=== PATIENT | female | born 1995 | race Caucasian/White ===

== ENCOUNTER 2018-04-04 11:55 | Inpatient (IN) ==
[2018-04-04 13:16] LABS: Apearance,Urine CLEAR (Clear); Bilirubin,Urine Negative (Negative); Blood, Urine Negative (Negative); Glucose,Urine (UA) Negative (Negative); Ketones,Urine Negative (Negative); Mucus,Urine Occasional /LPF (Occasional); Nitrite,Urine Negative (Negative); Protein,Urine Negative; RBC,Urine 1 /HPF (0-4); Squamous Epithelial Cell,Urine Occasional /HPF (0-10); Urine Color Yellow (Yellow); Urine Specific Gravity 1.013 (1.001-1.035); Urine Urobilinogen < 2.0 EU/DL (0.2-1.0)
[2018-04-04 13:24] LABS: Basophils % 0.2 % (0.0-0.8); Eosinophils % 0.1 % (0.00-10.9); Hematocrit 44.2 VOL% (35.7-47.0); Hemoglobin 14.3 GM/DL (12.0-16.0); Immature Granulocytes % 0.4 %; Immature Granulocytes Absolute 0.08 #; Lymphocytes # 1.1 10*3/uL (1.4-4.0); Lymphocytes % 5.9 % (21.3-54.2); Mean Corpuscular HGB Conc 32.4 GM/DL (32-36); Mean Corpuscular Hemoglobin 28 PG (27-34); Mean Corpuscular Volume 86.8 FL (87-102); Mean Platelet Volume 10.7 FL (9.6-12.0); Monocytes # 0.9 10*3/uL (0.11-0.8); Neutrophils # 15.8 10*3/uL (1.4-7.4); Neutrophils % 88.4 % (38.7-73.9); Platelet Count 196 T/CUMM (130-400); Red Blood Count 5.09 MC/CUMM (3.8-5.5); Red Cell Distribution Width 12.3 % (9.3-17.3); White Blood Count 17.8 T/CUMM (4-12)
[2018-04-04 13:48] LABS: Alanine Aminotransferase 34 U/L (13-56); Albumin 4.1 G/DL (3.4-5.0); Alkaline Phosphatase 48 U/L (45-117); Aspartate Amino Transferase 14 U/L (0-37); Bilirubin,Total < 0.39 MG/DL (0.2-1.0); Blood Urea Nitrogen 15 MG/DL (7-18); Calcium 9.5 MG/DL (8.5-10.1); Glucose 99 MG/DL (74-106); Osmolality,Calculated 279.4 MOS/KG (273-304); Potassium 3.8 MMOL/L (3.5-5.1); Sodium 140 MMOL/L (136-145)
[2018-04-04] MEDS ORDERED: PIPERACILLIN/TAZOBACTAM 3,375 MG in SODIUM CHLORIDE 0.9% 100 ML IV STA (17:15)
[2018-04-04] MEDS ORDERED: LIDOCAINE 1%/EPI INJ 20 ML VIAL ONE (18:44)
[2018-04-04] MEDS ORDERED: TISSUE ADHESIVE 1 EACH APPLICATOR TOP ONE (18:44)
[2018-04-04] MEDS: LACTATED RINGERS 1,000 ML IV SCH ×2 (19:06→20:01)
[2018-04-04] MEDS ORDERED: ONDANSETRON 4 MG/2 ML VIAL IV PRN ×2 (19:17→20:00)
[2018-04-04] MEDS ORDERED: HYDROmorphone 2 MG/1 ML VIAL IV PRN (19:17)
[2018-04-04] MEDS ORDERED: HYDROmorphone 2 MG/1 ML VIAL ONE (20:04)
[2018-04-04] MEDS: HYDROmorphone 2 MG/1 ML VIAL IV PRN ×4 (20:05→20:20)
[2018-04-04] MEDS ORDERED: ONDANSETRON 4 MG/2 ML VIAL ONE (20:08)
[2018-04-04] MEDS ORDERED: PROPOFOL 200 MG/20 ML VIAL IV ONE (20:11)
[2018-04-04] MEDS ORDERED: MIDAZOLAM 2 MG/2 ML VIAL ONE (20:12)
[2018-04-04] MEDS ORDERED: GLYCOPYRROLATE 0.4 MG/2 ML VIAL ONE (20:12)
[2018-04-04] MEDS ORDERED: ROCURONIUM 100 MG/10 ML VIAL IV ONE (20:12)
[2018-04-04] MEDS ORDERED: fentaNYL 100 MCG/2 ML VIAL ONE (20:12)
[2018-04-04] MEDS ORDERED: SUCCINYLCHOLINE 200 MG/10 ML VIAL ONE (20:12)
[2018-04-04] MEDS ORDERED: NEOSTIGMINE 10 MG/10 ML VIAL ONE (20:12)
[2018-04-04] MEDS ORDERED: ACETAMINOPHEN 1,000 MG/100 ML VIAL IV ONE (20:12)
[2018-04-04] MEDS ORDERED: DEXAMETHASONE 10 MG/1 ML VIAL ONE (20:12)
[2018-04-04] MEDS ORDERED: DESFLURANE 1 UNIT/15 MINUTE INH ONE (20:13)
[2018-04-04] MEDS: DEXTROSE 5% LACTATED RINGERS 1,000 ML IV SCH (22:07)
[2018-04-04] MEDS: cefOXitin 2,000 MG in SYRINGE 1 EACH IV SCH (22:58)
[2018-04-05 04:29] LABS: Basophils % 0.1 % (0.0-0.8); Hematocrit 39.8 VOL% (35.7-47.0); Hemoglobin 12.9 GM/DL (12.0-16.0); Immature Granulocytes % 0.4 %; Immature Granulocytes Absolute 0.06 #; Lymphocytes # 0.4 10*3/uL (1.4-4.0); Mean Corpuscular HGB Conc 32.4 GM/DL (32-36); Mean Corpuscular Hemoglobin 28 PG (27-34); Mean Corpuscular Volume 87.7 FL (87-102); Mean Platelet Volume 11.6 FL (9.6-12.0); Monocytes # 0.1 10*3/uL (0.11-0.8); Monocytes % 0.7 % (1.7-12.7); Neutrophils # 13.1 10*3/uL (1.4-7.4); Neutrophils % 95.8 % (38.7-73.9); Platelet Count 195 T/CUMM (130-400); Red Blood Count 4.54 MC/CUMM (3.8-5.5); Red Cell Distribution Width 12.3 % (9.3-17.3); White Blood Count 13.7 T/CUMM (4-12)
[2018-04-05] MEDS: cefOXitin 2,000 MG in SYRINGE 1 EACH IV SCH ×4 (04:45→22:06)
[2018-04-05] MEDS: DEXTROSE 5% LACTATED RINGERS 1,000 ML IV SCH ×3 (04:45→19:15)
[2018-04-05 05:21] LABS: Lymphocytes 7 % (20-55); Platelet Estimate Adequate; Segmented Neutrophils 93 % (50-85); Total Cells Counted 100
[2018-04-06] MEDS: DEXTROSE 5% LACTATED RINGERS 1,000 ML IV SCH ×2 (03:40→06:35)
[2018-04-06 04:59] LABS: Basophils % 0.2 % (0.0-0.8); Eosinophils % 0.1 % (0.00-10.9); Hematocrit 34.9 VOL% (35.7-47.0); Immature Granulocytes % 0.3 %; Immature Granulocytes Absolute 0.03 #; Lymphocytes # 2.3 10*3/uL (1.4-4.0); Mean Corpuscular HGB Conc 31.5 GM/DL (32-36); Mean Corpuscular Hemoglobin 28 PG (27-34); Mean Corpuscular Volume 88.8 FL (87-102); Mean Platelet Volume 10.9 FL (9.6-12.0); Monocytes # 0.6 10*3/uL (0.11-0.8); Neutrophils % 70.4 % (38.7-73.9); Platelet Count 164 T/CUMM (130-400); Red Blood Count 3.93 MC/CUMM (3.8-5.5); Red Cell Distribution Width 12.5 % (9.3-17.3)
[2018-04-06] MEDS: cefOXitin 2,000 MG in SYRINGE 1 EACH IV SCH (05:38)
[2018-04-06 12:10] VITALS: BP 117/64
== END 2018-04-06 12:05 | disposition home or self-care (01) | DRG 343 ==
LOC: N.ED 11:55 → N.EDINP 18:09 → N.3E 18:30
PROVIDERS: ADMIT Surgery; ATTEND Surgery

== ENCOUNTER 2021-06-16 11:43 | Inpatient (IN) ==
[2021-06-16] MEDS ORDERED: BUTORPHANOL 2 MG/ML VIAL IV PRN (12:14)
[2021-06-16] MEDS ORDERED: MEPERIDINE 50 MG/1 ML VIAL IV PRN (12:14)
[2021-06-16] MEDS ORDERED: LIDOCAINE 1% 50 ML VIAL MISC INJ ONE (12:14)
[2021-06-16] MEDS: LACTATED RINGERS 1,000 ML IV SCH ×2 (12:26→23:11)
[2021-06-16 12:33] LABS: Basophils % 0.2 % (0.0-0.8); Eosinophils % 0.2 % (0.00-10.9); Hematocrit 35.3 VOL% (35.7-47.0); Hemoglobin 11.2 GM/DL (12.0-16.0); Immature Granulocytes % 1.9 %; Immature Granulocytes Absolute 0.27 #; Lymphocytes # 1.3 10*3/uL (1.4-4.0); Lymphocytes % 9.1 % (21.3-54.2); Mean Corpuscular HGB Conc 31.7 GM/DL (32-36); Mean Corpuscular Volume 80.4 FL (87-102); Mean Platelet Volume 11.7 FL (9.6-12.0); Monocytes % 6.3 % (1.7-12.7); NRBC # 0.02 10*3/uL; Neutrophils % 82.3 % (38.7-73.9); Platelet Count 171 T/CUMM (130-400); Red Blood Count 4.39 MC/CUMM (3.8-5.5); Red Cell Distribution Width 15.3 % (9.3-17.3); White Blood Count 13.9 T/CUMM (4-12)
[2021-06-16 12:50] LABS: Alanine Aminotransferase 16 U/L (13-56); Albumin 2.6 G/DL (3.4-5.0); Alkaline Phosphatase 150 U/L (45-117); Aspartate Amino Transferase 13 U/L (0-37); Bilirubin,Total < 0.39 MG/DL (0.20-1.00); Blood Urea Nitrogen 11 MG/DL (7-18); Calcium 8.8 MG/DL (8.5-10.1); Carbon Dioxide 22 MMOL/L (21-32); Estimated Glom Filtration Rate 153 ML/MIN; Glucose 100 MG/DL (74-106); Potassium 3.7 MMOL/L (3.5-5.1); Sodium 136 MMOL/L (136-145); Total Protein 6.5 G/DL (6.4-8.2)
[2021-06-16] MEDS: OXYTOCIN/LR 20 UNIT/1,000 ML BAG IV SCH (12:53)
[2021-06-16] MEDS ORDERED: LACTATED RINGERS 1,000 ML IV ONE (15:21)
[2021-06-16] MEDS ORDERED: FAMOTIDINE 20 MG/2 ML VIAL IV ONE (15:21)
[2021-06-16] MEDS ORDERED: ePHEDrine 50 MG/ML VIAL IV PRN (15:21)
[2021-06-16] MEDS ORDERED: CITRIC ACID/SODIUM CITRATE 30 ML UDCUP PO ONE (15:21)
[2021-06-16] MEDS ORDERED: NALOXONE 0.4 MG/ML VIAL IV PRN (15:22)
[2021-06-16] MEDS ORDERED: LACTATED RINGERS 1,000 ML IV SCH (15:30)
[2021-06-16] MEDS ORDERED: fentaNYL 2 MCG/ROPIV 0.2% EPID 100 ML EPIDURAL SCH (16:00)
[2021-06-16] MEDS: fentaNYL 2 MCG/ROPIV 0.2% EPID 100 ML EPIDURAL SCH ×2 (16:30→23:31)
[2021-06-16 17:49] LABS: Bilirubin,Urine Negative (Negative); Blood, Urine Negative (Negative); Glucose,Urine (UA) Negative (Negative); Ketones,Urine 80 mg/dL (Negative); Mucus,Urine Occasional /LPF (Occasional); Nitrite,Urine Negative (Negative); Protein,Urine Negative; RBC,Urine 2 /HPF (0-4); Squamous Epithelial Cell,Urine Occasional /HPF (0-10); Urine Appearance CLEAR (Clear); Urine Color Yellow (Yellow); Urine Specific Gravity 1.019 (1.001-1.035); Urine Urobilinogen < 2.0 EU/DL (<2.0)
[2021-06-16] MEDS: ONDANSETRON 4 MG/2 ML VIAL IV PRN (19:16)
[2021-06-17] MEDS ORDERED: LIDOCAINE MPF 2% /EPI 20 ML VIAL ONE (00:25)
[2021-06-17] MEDS: ONDANSETRON 4 MG/2 ML VIAL IV PRN (02:15)
[2021-06-17] MEDS ORDERED: SODIUM CHLORIDE 0.9% 0 ML IV ONE (03:12)
[2021-06-17] MEDS ORDERED: TRANEXAMIC ACID 1,000 MG/10 ML VIAL ONE (03:12)
[2021-06-17] MEDS ORDERED: miSOPROStoL 200 MCG TABLET ONE (03:12)
[2021-06-17] MEDS ORDERED: CARBOPROST TROMETHAMINE 250 MCG/ML AMP IM ONE (03:13)
[2021-06-17] MEDS ORDERED: METHYLERGONOVINE 0.2 MG/1 ML AMP ONE (03:13)
[2021-06-17] MEDS: fentaNYL 2 MCG/ROPIV 0.2% EPID 100 ML EPIDURAL SCH (05:34)
[2021-06-17] MEDS ORDERED: METHYLERGONOVINE 0.2 MG/1 ML AMP IM ONE ×2 (07:42→08:09)
[2021-06-17 07:49] LABS: Cord Venous Blood HCO3 20.5 MMOL/L; Cord Venous Blood PCO2 34.5 MMHG; Cord Venous Blood PO2 29.2 MMHG
[2021-06-17] MEDS ORDERED: MEASLES/MUMPS/RUBELLA VACCINE 0.5 ML VIAL SUBCUT ONE (08:09)
[2021-06-17] MEDS ORDERED: WITCH HAZEL PADS 100/JAR TOP PRN (08:09)
[2021-06-17] MEDS ORDERED: HYDROCORTISONE 2.5% RECTAL CREAM 30 GM TUBE TOP PRN (08:09)
[2021-06-17] MEDS ORDERED: DIPH/TET/ACEL PERT BOOSTER VACCINE 0.5 ML VIAL IM ONE (08:09)
[2021-06-17] MEDS ORDERED: ACETAMINOPHEN/CODEINE 300-30 MG TABLET PO PRN (08:09)
[2021-06-17] MEDS ORDERED: BENZOCAINE 20%/MENTHOL 0.5% SPRAY 56 GM CAN TOP PRN (08:09)
[2021-06-17] MEDS ORDERED: LANOLIN 50% CREAM 0.3 OZ TUBE TOP PRN (08:09)
[2021-06-17] MEDS ORDERED: BISACODYL 10 MG SUPP RECTAL PRN (08:09)
[2021-06-17] MEDS ORDERED: ACETAMINOPHEN 325 MG TABLET PO PRN (08:09)
[2021-06-17] MEDS: OXYTOCIN/LR 20 UNIT/1,000 ML BAG IV SCH (09:25)
[2021-06-17] MEDS: IBUPROFEN 800 MG TABLET PO PRN (15:52)
[2021-06-17] MEDS: DOCUSATE SODIUM 100 MG CAPSULE PO SCH (21:06)
[2021-06-17] MEDS: ACETAMINOPHEN/CODEINE 300-30 MG TABLET PO PRN (21:07)
[2021-06-18] MEDS: IBUPROFEN 800 MG TABLET PO PRN ×3 (05:58→23:54)
[2021-06-18 06:30] LABS: Basophils % 0.2 % (0.0-0.8); Eosinophils # 0.1 10*3/uL (0.0-0.87); Eosinophils % 0.3 % (0.00-10.9); Hematocrit 28.3 VOL% (35.7-47.0); Hemoglobin 8.8 GM/DL (12.0-16.0); Immature Granulocytes % 1.6 %; Immature Granulocytes Absolute 0.28 #; Lymphocytes # 2.1 10*3/uL (1.4-4.0); Lymphocytes % 11.4 % (21.3-54.2); Mean Corpuscular HGB Conc 31.1 GM/DL (32-36); Mean Corpuscular Volume 82.5 FL (87-102); Mean Platelet Volume 12.3 FL (9.6-12.0); Monocytes % 7.2 % (1.7-12.7); Neutrophils % 79.3 % (38.7-73.9); Platelet Count 152 T/CUMM (130-400); Red Blood Count 3.43 MC/CUMM (3.8-5.5); Red Cell Distribution Width 15.6 % (9.3-17.3); White Blood Count 17.9 T/CUMM (4-12)
[2021-06-18] MEDS: MULTIVITAMIN (PRENATAL) TABLET PO SCH (08:26)
[2021-06-18] MEDS: DOCUSATE SODIUM 100 MG CAPSULE PO SCH ×2 (08:26→21:28)
[2021-06-18] MEDS: FERROUS SULFATE 325 MG TABLET PO SCH ×2 (11:58→21:28)
[2021-06-18] MEDS: ACETAMINOPHEN/CODEINE 300-30 MG TABLET PO PRN (15:59)
[2021-06-19] MEDS ORDERED: diphenhydrAMINE 2% CREAM 28 GM TUBE TOP PRN (03:17)
[2021-06-19] MEDS: MULTIVITAMIN (PRENATAL) TABLET PO SCH (09:02)
[2021-06-19] MEDS: FERROUS SULFATE 325 MG TABLET PO SCH (09:02)
[2021-06-19] MEDS: DOCUSATE SODIUM 100 MG CAPSULE PO SCH (09:03)
[2021-06-19 17:43] VITALS: BP 131/80
== END 2021-06-19 11:42 | disposition home or self-care (01) | DRG 807 ==
LOC: N.LD 11:43 → N.OB 06-17 11:34
PROVIDERS: ADMIT Obstetrics & Gynecology; ATTEND Obstetrics & Gynecology